=== PATIENT | female | born 1945 | race Two or more races ===

== ENCOUNTER 2024-03-22 18:07 | Inpatient (IN) | payer OTHER ==
[~2024-03-22] VITALS: Ht 144.8 cm; Wt 40.8 kg
[2024-03-22] MEDS ORDERED: FAMOtidine 10 MG/ML (4ML VIAL) IV ONE (18:30)
[2024-03-22] MEDS ORDERED: LABETALOL HCL 200 MG/40 ML VIAL IV ONE (18:30)
[2024-03-22] MEDS ORDERED: METHYLPREDNISOLONE SOD SUCC 40 MG VIAL IV ONE (18:30)
[2024-03-22] MEDS ORDERED: LEVALBUTEROL HCL 0.63 MG/3 ML SOLUTION IH ONE (18:30)
[2024-03-22] MEDS ORDERED: 0.9 % SODIUM CHLORIDE 1,000 ML IV ONE (18:30)
[2024-03-22] MEDS ORDERED: CEFAZOLIN SODIUM 1,000 MG VIAL IV ONE (18:30)
[2024-03-22] MEDS ORDERED: IPRATROPIUM/ALBUTEROL SULFATE 3 ML AMPUL.NEB IH ONE (18:30)
[2024-03-22 19:01] LABS: MEAN CELL VOLUME 71.9 fL (80.00-100.00); MEAN CORPUSCULAR HEMOGLOBIN 22.4 pg (27.00-32.0); MEAN CORPUSCULAR HGB CONC 31.2 g/dl (32.0-36.0); PLATELET COUNT 310 K/uL (150-450); RED BLOOD COUNT 4.45 M/uL (4.00-6.00); RED CELL DISTRIBUTION WIDTH 19.8 % (11.5-14.5)
[2024-03-22 19:10] LABS: ERYTHROCYTE SEDIMENTATION RATE 90 mm/hr
[2024-03-22 19:12] LABS: INR 1.32; PROTHROMBIN TIME 14.1 SECONDS (9.0-11.5)
--- NOTE | 2024-03-22 19:20 | NUR ---
SE RECIBE PACIENTE FEMENINA ALERTA Y ORIENTADA EN PERSONA, LLEGA A TANK DE EMERGENCIA AMBULANCIA. SE UBICA EN AREA DE CHEST PAIN EN LA CAMA #18 CON BARANDAS ELEVADAS. SE CONECTA A MONITOR CARDIACO, OXIMETRIA DE PULSO Y NON-REBREATHING AL 100%. SE CANALIZA EN BRAZO DERECHO CON ANGIO #20 Y SE LE COLOCA 0.9 NSS 1,000 BAJANDO A 100ML/HR Y EN BRAZO ASHLEY CON ANGIO #20 Y SE LE COLOCA H/L PATENTES LIBRES DE EDEMA Y ENROJECIMIENTO. SE LE SARATH LAS MUETRAS Y SE LE ADMINISTRAN LOS MEDICAMENTOS JESSICA LA ORDEN MEDICA. SE OBSERVA POR CAMBIOS.
[2024-03-22 19:21] LABS: ALBUMIN 2.8 gm/dL (3.4-5.0); BILIRUBIN TOTAL 2.46 mg/dL (0.3-1.2); CALCIUM 9.1 mg/dL (8.5-10.1); CREATININE SERUM 2.7 mg/dL (0.55-1.02); GFR 16.96; GLOBULINA 4.5 G/DL (2.4-3.5); POTASSIUM 4.05 mEq/L (3.5-5.1); TOTAL PROTEIN 7.3 gm/dL (6.4-8.2)
[2024-03-22 19:27] LABS: D DIMER 5.53 MG/L; PARTIAL THROMBOPLASTIN TIME 20.8 SECONDS (22.0-34.0)
[2024-03-22 19:28] LABS: C-REACTIVE PROTEIN 1.51 MG/DL (0.00-0.29)
--- NOTE | 2024-03-22 22:46 | NUR ---
CONSULTA PARA TRABAJADORA SOCIAL CUAL FUE YA CONTESTADA POR LA TRABAJADORA SOCIAL.
--- NOTE | 2024-03-22 23:36 | NUR ---
SE RECIBE A PTE ALERTA EN CAMA BAJA CON BARANDAS ELEVADAS POR SEGURIDAD. SE OBSERVA A PTE CONECTADA A MONITOR CARDIACO Y OXIMETRIA DE PULSO. PTE CON .9NSS BAJANDO A 100ML/HR. PTE CON ULCERA SACRAL. PTE PENDIENTE A RESULTADOS DE LAB.
[2024-03-22] MEDS ORDERED: ACETAMINOPHEN 500 MG GEL..CAP PO PRN (23:45)
[2024-03-22] MEDS ORDERED: SODIUM CHLORIDE 0.45 % 500 ML IV ONE (23:45)
[2024-03-22] MEDS ORDERED: DEXTROSE 5 %-0.45 % SOD CHLORD 1,000 ML IV SCH (23:45)
[2024-03-22] MEDS ORDERED: MEROPENEM 500 MG/VIAL VIAL IV SCH (23:45)
[2024-03-23] VITALS (14 sets, daily range): BP systolic 80–140; BP diastolic 56–83; O2SAT 88–100
[2024-03-23] MEDS ORDERED: IPRATROPIUM BROMIDE 0.5 MG/2.5 ML AMPUL.NEB IH SCH (01:00)
[2024-03-23 02:24] LABS: ABG PH 7.343 (7.35-7.45); ABG PO2 390.7 mmHg (80-100); ABG pCO2 33.2 mmHg (35-45)
[2024-03-23 02:25] LABS: BICARBONATE 17.6 mmol/l (23-25); SaO2 99.9 %; Tco2 18.6 mmol/l; allen test SATISFACTORY; o2 100 %; puncture site RADIAL RIGHT
[2024-03-23] MEDS ORDERED: SODIUM CHLORIDE 0.45 % 1,000 ML IV STA (04:19)
[2024-03-23 07:45] LABS: MAGNESIUM 2.9 mg/dL (1.8-2.4); PHOSPHOROUS 5.5 mg/dL (2.5-4.9); TSH 0.38 uIU/mL (0.358-3.74)
[2024-03-23] MEDS ORDERED: MEGESTROL ACETATE 40 MG TABLET PO SCH (09:00)
[2024-03-23] MEDS ORDERED: PANTOPRAZOLE SODIUM 40 MG/VIAL VIAL IV SCH (09:00)
[2024-03-23] MEDS ORDERED: LINEZOLID IN DEXTROSE 5% 300 ML IV SCH (09:00)
[2024-03-23] MEDS ORDERED: MEROPENEM 500 MG/VIAL VIAL IV SCH (09:00)
[2024-03-23] MEDS ORDERED: FAMOTIDINE/PF 20 MG in 0.9 % SODIUM CHLORIDE 8 ML IV PUSH SCH (21:00)
[2024-03-24] VITALS (9 sets, daily range): BP systolic 94–112; BP diastolic 53–68; O2SAT 90–99
[2024-03-24] MEDS ORDERED: SODIUM CHLORIDE 0.45 % 1,000 ML IV SCH (10:15)
[2024-03-24 12:31] LABS: HEMATOCRIT 26.1 % (36.0-45.00); HEMOGLOBIN 8.3 g/dL (12.0-15.00); MEAN CORPUSCULAR HEMOGLOBIN 22.3 pg (27.00-32.0); PLATELET COUNT 170 K/uL (150-450); RED BLOOD COUNT 3.72 M/uL (4.00-6.00); RED CELL DISTRIBUTION WIDTH 19.5 % (11.5-14.5)
[2024-03-24 13:09] LABS: ALBUMIN 2.3 gm/dL (3.4-5.0); CREATININE SERUM 1.7 mg/dL (0.55-1.02); GFR 28.92; PHOSPHOROUS 2.3 mg/dL (2.5-4.9)
[2024-03-24 13:17] LABS: POTASSIUM 2.62 mEq/L (3.5-5.1)
[2024-03-24] MEDS ORDERED: DEXTROSE 5 %-0.45 % SOD CHLORD 1,000 ML IV SCH (14:00)
[2024-03-24] MEDS ORDERED: AMIODARONE HCL 200 MG TABLET NGT SCH (17:00)
[2024-03-24] MEDS ORDERED: POTASSIUM CHLORIDE IN WATER 40 MEQ/100 ML PIGGYBAG IV SCH (18:00)
[2024-03-25] VITALS (9 sets, daily range): BP systolic 110–115; BP diastolic 65–77; O2SAT 90–100
[2024-03-25 07:01] LABS: HEMATOCRIT 24.3 % (36.0-45.00); MEAN CELL VOLUME 70.6 fL (80.00-100.00); MEAN CORPUSCULAR HGB CONC 32.5 g/dl (32.0-36.0); RED BLOOD COUNT 3.45 M/uL (4.00-6.00); RED CELL DISTRIBUTION WIDTH 19.3 % (11.5-14.5)
[2024-03-25 07:24] LABS: MEAN CORPUSCULAR HEMOGLOBIN 22.8 pg (27.00-32.0); PLATELET COUNT 127 K/uL (150-450)
[2024-03-25 07:27] LABS: CALCIUM 7.8 mg/dL (8.5-10.1); CREATININE SERUM 1.53 mg/dL (0.55-1.02); GFR 32.66
[2024-03-25 07:35] LABS: HEMOGLOBIN 7.9 g/dL (12.0-15.00)
[2024-03-25] MEDS ORDERED: FUROsemide 20 MG/2 ML VIAL IV SCH (07:45)
[2024-03-25 08:11] LABS: PHOSPHOROUS 1.7 mg/dL (2.5-4.9)
[2024-03-25 08:12] LABS: POTASSIUM 2.75 mEq/L (3.5-5.1)
[2024-03-25] MEDS ORDERED: POTASSIUM PHOS,M-BASIC-D-BASIC 15 MM in 0.9 % SODIUM CHLORIDE 250 ML IV ONE (10:00)
[2024-03-25] MEDS ORDERED: POTASSIUM CHLORIDE/D5-0.45NACL 40 MEQ/1,000 ML PIGGYBAG IV SCH (10:00)
[2024-03-25 15:56] LABS: URINE APPEARANCE Clear; URINE BILIRRUBIN Small (NEGATIVE); URINE BLOOD Moderate; URINE COLOR Dark Yellow; URINE KETONE Negative (NEGATIVE); URINE LEUKOCYTE Small; URINE NITRATE Negative
[2024-03-25 16:00] LABS: URINE CAST 2.28 uL (0.0-1.40); URINE EPITHELIAL CELLS 14.8 uL (0.0-38.8); URINE RBC 141.8 uL (0.0-20.8); URINE WBC 60.7 uL (0.0-23.2)
[2024-03-25 16:51] LABS: URINE CRYSTALS FEW /HPF; URINE GLUCOSE 100 MG/DL (NEGATIVE); URINE MUCUS SCANT; URINE PROTEIN 100 (NEGATIVE)
[2024-03-25] MEDS ORDERED: CIPROFLOXACIN IN 5 % DEXTROSE 100 ML IV SCH (17:45)
[2024-03-25] MEDS ORDERED: MEROPENEM 1,000 MG VIAL IV SCH (21:00)
[2024-03-26] VITALS (8 sets, daily range): BP systolic 123–131; BP diastolic 77–79; O2SAT 10–100
[2024-03-26] MEDS ORDERED: SOD FERRIC GLUC COMPLX/SUCROSE 62.5 MG in 0.9 % SODIUM CHLORIDE 50 ML IV SCH (22:09)
[2024-03-27] VITALS (8 sets, daily range): BP systolic 145–163; BP diastolic 85–90; O2SAT 83–100
[2024-03-28] VITALS (7 sets, daily range): BP systolic 115–180; BP diastolic 78–100; O2SAT 97–100
[2024-03-28 10:51] LABS: MEAN CELL VOLUME 78.6 fL (80.00-100.00); MEAN CORPUSCULAR HGB CONC 33.2 g/dl (32.0-36.0); PLATELET COUNT 125 K/uL (150-450); RED BLOOD COUNT 5.33 M/uL (4.00-6.00); RED CELL DISTRIBUTION WIDTH 23.4 % (11.5-14.5)
[2024-03-28 10:52] LABS: HEMOGLOBIN 13.9 g/dL (12.0-15.00)
[2024-03-28 11:47] LABS: ALBUMIN 2.2 gm/dL (3.4-5.0); BILIRUBIN TOTAL 1.38 mg/dL (0.3-1.2); CALCIUM 8.5 mg/dL (8.5-10.1); CREATININE SERUM 0.38 mg/dL (0.55-1.02); GFR 162.94; GLOBULINA 3.8 G/DL (2.4-3.5); MAGNESIUM 1.6 mg/dL (1.8-2.4); PHOSPHOROUS 2.2 mg/dL (2.5-4.9); POTASSIUM 3.55 mEq/L (3.5-5.1)
[2024-03-28 11:57] LABS: C-REACTIVE PROTEIN 1.93 MG/DL (0.00-0.29)
[2024-03-28] MEDS ORDERED: POTASSIUM PHOS,M-BASIC-D-BASIC 3 MM/ML VIAL IV NR (12:30)
[2024-03-28 13:48] LABS: PH,URINE 5.5 (5.0-8.0); URINE APPEARANCE Clear; URINE BILIRRUBIN Small (NEGATIVE); URINE BLOOD Moderate; URINE COLOR Dark Yellow; URINE KETONE Negative (NEGATIVE); URINE LEUKOCYTE Small; URINE NITRATE Negative
[2024-03-28 13:49] LABS: URINE CAST 3.81 uL (0.0-1.40); URINE EPITHELIAL CELLS 12.2 uL (0.0-38.8); URINE RBC 246.7 uL (0.0-20.8); URINE WBC 36.6 uL (0.0-23.2)
[2024-03-28 13:50] LABS: ob POSITIVE (NEGATIVE)
[2024-03-28 14:46] LABS: URINE GLUCOSE 250 MG/DL (NEGATIVE); URINE PROTEIN 100 (NEGATIVE)
[2024-03-28 14:48] LABS: URINE EPITHELIAL CELLS 0-4 /HPF
[2024-03-28 14:49] LABS: URINE CRYSTALS MODERATE /HPF; URINE MUCUS HEAVY
[2024-03-29] VITALS (9 sets, daily range): BP systolic 123–155; BP diastolic 73–90; O2SAT 97–99
[2024-03-29 06:45] LABS: BILIRUBIN TOTAL 1.03 mg/dL (0.3-1.2); CALCIUM 8.4 mg/dL (8.5-10.1); CREATININE SERUM 0.6 mg/dL (0.55-1.02); GFR 96.19; GLOBULINA 3.4 G/DL (2.4-3.5); PHOSPHOROUS 3.5 mg/dL (2.5-4.9); POTASSIUM 3.13 mEq/L (3.5-5.1); TOTAL PROTEIN 5.4 gm/dL (6.4-8.2)
[2024-03-29] MEDS ORDERED: ENOXAPARIN SODIUM 40 MG/0.4 ML SYRINGE SUBCUTANEO NR (11:00)
[2024-03-29] MEDS ORDERED: POTASSIUM CHLORIDE IN WATER 100 ML IV ONE (17:30)
[2024-03-29] MEDS ORDERED: ENOXAPARIN SODIUM 40 MG/0.4 ML SYRINGE SUBCUTANEO SCH (21:00)
[2024-03-30] VITALS (8 sets, daily range): BP systolic 131–145; BP diastolic 83–90; O2SAT 97–100
[2024-03-30 07:51] LABS: HEMATOCRIT 36.9 % (36.0-45.00); HEMOGLOBIN 12.3 g/dL (12.0-15.00); MEAN CELL VOLUME 79.7 fL (80.00-100.00); MEAN CORPUSCULAR HEMOGLOBIN 26.6 pg (27.00-32.0); MEAN CORPUSCULAR HGB CONC 33.4 g/dl (32.0-36.0); PLATELET COUNT 118 K/uL (150-450); RED BLOOD COUNT 4.63 M/uL (4.00-6.00); RED CELL DISTRIBUTION WIDTH 24.3 % (11.5-14.5)
[2024-03-30 09:29] LABS: ALBUMIN 1.9 gm/dL (3.4-5.0); BILIRUBIN TOTAL 0.91 mg/dL (0.3-1.2); CALCIUM 8.4 mg/dL (8.5-10.1); CREATININE SERUM 0.44 mg/dL (0.55-1.02); GFR 137.58; GLOBULINA 3.3 G/DL (2.4-3.5); POTASSIUM 3.47 mEq/L (3.5-5.1); TOTAL PROTEIN 5.2 gm/dL (6.4-8.2)
[2024-03-30 10:10] LABS: C-REACTIVE PROTEIN 1.66 MG/DL (0.00-0.29)
[2024-03-30] MEDS ORDERED: DEXTROSE 5 % IN WATER 1,000 ML IV SCH (12:15)
[2024-03-30] MEDS ORDERED: POTASSIUM BICARBONATE/CIT AC 25 MEQ TABLET.EFF PO SCH (13:00)
[2024-03-31] VITALS (9 sets, daily range): BP systolic 133–140; BP diastolic 83–89; O2SAT 95–100
[2024-03-31] MEDS ORDERED: POTASSIUM BICARBONATE/CIT AC 25 MEQ TABLET.EFF PO SCH (17:00)
[2024-04-01] VITALS (8 sets, daily range): BP systolic 146–148; BP diastolic 69–90; O2SAT 97–100
[2024-04-01 15:21] LABS: CALCIUM 8.7 mg/dL (8.5-10.1); CREATININE SERUM 0.43 mg/dL (0.55-1.02); GFR 141.28; PHOSPHOROUS 2.5 mg/dL (2.5-4.9); POTASSIUM 4.32 mEq/L (3.5-5.1)
[2024-04-02] VITALS (8 sets, daily range): BP systolic 108–143; BP diastolic 70–187; O2SAT 99–100
[2024-04-03] VITALS (7 sets, daily range): BP systolic 102–120; BP diastolic 66–70; O2SAT 99–100
[2024-04-03 07:41] LABS: ALBUMIN 1.6 gm/dL (3.4-5.0); BILIRUBIN TOTAL 0.52 mg/dL (0.3-1.2); CALCIUM 8.7 mg/dL (8.5-10.1); CREATININE SERUM 0.36 mg/dL (0.55-1.02); GFR 173.43; GLOBULINA 3.2 G/DL (2.4-3.5); POTASSIUM 4.32 mEq/L (3.5-5.1); TOTAL PROTEIN 4.8 gm/dL (6.4-8.2)
[2024-04-03 07:45] LABS: C-REACTIVE PROTEIN 4.8 MG/DL (0.00-0.29)
[2024-04-03 08:16] LABS: HEMATOCRIT 34.9 % (36.0-45.00); HEMOGLOBIN 11.5 g/dL (12.0-15.00); MEAN CELL VOLUME 81.4 fL (80.00-100.00); MEAN CORPUSCULAR HEMOGLOBIN 26.9 pg (27.00-32.0); RED BLOOD COUNT 4.29 M/uL (4.00-6.00)
[2024-04-03 08:30] LABS: PLATELET COUNT 110 K/uL (150-450); RED CELL DISTRIBUTION WIDTH 26.1 % (11.5-14.5)
[2024-04-04] VITALS (8 sets, daily range): BP systolic 133–150; BP diastolic 69–78; O2SAT 97–100
[2024-04-05] VITALS (9 sets, daily range): BP systolic 123–134; BP diastolic 67–80; O2SAT 97–100
[2024-04-05 18:30] LABS: ALBUMIN 1.6 gm/dL (3.4-5.0); BILIRUBIN TOTAL 0.5 mg/dL (0.3-1.2); CALCIUM 8.4 mg/dL (8.5-10.1); CREATININE SERUM 0.24 mg/dL (0.55-1.02); GFR 276.91; GLOBULINA 3.3 G/DL (2.4-3.5); POTASSIUM 3.74 mEq/L (3.5-5.1); TOTAL PROTEIN 4.9 gm/dL (6.4-8.2)
[2024-04-05 22:07] LABS: HEMATOCRIT 30.3 % (36.0-45.00); HEMOGLOBIN 10.4 g/dL (12.0-15.00); MEAN CELL VOLUME 80.1 fL (80.00-100.00); MEAN CORPUSCULAR HEMOGLOBIN 27.5 pg (27.00-32.0); MEAN CORPUSCULAR HGB CONC 34.3 g/dl (32.0-36.0); PLATELET COUNT 161 K/uL (150-450); RED BLOOD COUNT 3.79 M/uL (4.00-6.00)
[2024-04-05 22:09] LABS: RED CELL DISTRIBUTION WIDTH 25.8 % (11.5-14.5)
[2024-04-06] VITALS (7 sets, daily range): BP systolic 125–136; BP diastolic 63–82; O2SAT 97–100
[2024-04-06 09:28] LABS: ABG PH 7.514 (7.35-7.45); ABG PO2 187.8 mmHg (80-100); BASE EXCESS 4.2 mmol/l; BICARBONATE 26.7 mmol/l (23-25); SaO2 99.7 %; Tco2 27.8 mmol/l; allen test SATISFACTORY; o2 50 %; puncture site RADIAL LEFT
[2024-04-06] MEDS ORDERED: VITAMIN B COMPLEX 1 EACH PO SCH (20:45)
[2024-04-06] MEDS ORDERED: SOD FERRIC GLUC COMPLX/SUCROSE 62.5 MG/5 ML AMPUL IV SCH (20:46)
[2024-04-06] MEDS ORDERED: Cyanocobalamin/Mecobalamin 1 TAB.SL SL SCH (20:46)
[2024-04-07 01:59] VITALS: O2SAT 100
[2024-04-07 03:25] VITALS: BP 120/76; O2SAT 95
[2024-04-07 11:12] VITALS: BP 141/84; O2SAT 96
[2024-04-07 13:57] VITALS: O2SAT 100
[2024-04-07] MEDS ORDERED: MEGESTROL ACETA20 MG PO (16:45)
[2024-04-07] MEDS ORDERED: AMIODARONE HCL200 MG NGT (16:45)
[2024-04-07] MEDS ORDERED: Neurin-Sl Tablet Sl SL (16:45)
[2024-04-07] MEDS ORDERED: CIPRO250 MG PO (16:45)
[2024-04-07] MEDS ORDERED: B Complex PO (16:45)
[2024-04-07] MEDS ORDERED: ELIQUIS2.5 MG PO (16:45)
[2024-04-07] MEDS ORDERED: INTEGRA PLUS C1 EACH PO (16:45)
[2024-04-07 17:20] VITALS: O2SAT 100
[2024-04-07 18:29] VITALS: BP 122/75; O2SAT 96
== END 2024-04-07 19:42 | disposition home or self-care (01) | DRG 871 ==
LOC: ER 18:07 → SEC-K 23:45 → ICU-2 23:45 → SEC-K 03-23 10:20 → MEDJ 03-23 16:35
PROVIDERS: General Practice; Internal Medicine; Internal Medicine Infectious Disease; Internal Medicine Nephrology; ADMIT Internal Medicine; ATTEND Internal Medicine
PROC: BW28ZZZ Computerized Tomography (CT Scan) of Head (ICD-10-PCS; 2024-03-22)
PROC: BW24ZZZ Computerized Tomography (CT Scan) of Chest and Abdomen (ICD-10-PCS; 2024-03-22)
PROC: B24BZZZ Ultrasonography of Heart with Aorta (ICD-10-PCS; 2024-03-22)
PROC: 4A12X4Z Monitoring of Cardiac Electrical Activity, External Approach (ICD-10-PCS; 2024-03-24)
PROC: 30233N1 Transfusion of Nonautologous Red Blood Cells into Peripheral Vein, Percutaneous Approach (ICD-10-PCS; 2024-03-26)
PROC: B54DZZZ Ultrasonography of Bilateral Lower Extremity Veins (ICD-10-PCS; 2024-03-27)
PROC: 02HV33Z Insertion of Infusion Device into Superior Vena Cava, Percutaneous Approach (ICD-10-PCS; principal; 2024-03-28)
PROC: BW3GYZZ Magnetic Resonance Imaging (MRI) of Pelvic Region using Other Contrast (ICD-10-PCS; 2024-03-30)
DX: A41.9 Sepsis, unspecified organism (principal); I21.4 Non-ST elevation (NSTEMI) myocardial infarction; J96.01 Acute respiratory failure with hypoxia; N17.9 Acute kidney failure, unspecified; E87.0 Hyperosmolality and hypernatremia; I47.10 Supraventricular tachycardia, unspecified; I82.451 Acute embolism and thrombosis of right peroneal vein; I82.441 Acute embolism and thrombosis of right tibial vein; E46 Unspecified protein-calorie malnutrition; E86.0 Dehydration; G30.9 Alzheimer's disease, unspecified; F02.80 Dementia in other diseases classified elsewhere, unspecified severity, without behavioral disturbance, psychotic disturbance, mood disturbance, and anxiety; I48.91 Unspecified atrial fibrillation; C54.1 Malignant neoplasm of endometrium; L89.152 Pressure ulcer of sacral region, stage 2; L08.9 Local infection of the skin and subcutaneous tissue, unspecified; B95.2 Enterococcus as the cause of diseases classified elsewhere; B96.89 Other specified bacterial agents as the cause of diseases classified elsewhere; I87.2 Venous insufficiency (chronic) (peripheral); D69.6 Thrombocytopenia, unspecified; N81.4 Uterovaginal prolapse, unspecified; D63.0 Anemia in neoplastic disease
CPT/HCPCS: 72196